=== PATIENT | female | born 1995 | race Caucasian/White ===

== ENCOUNTER 2016-04-17 19:20 | Emergency (ER) | payer OTHER ==
--- NOTE | ~2016-04-17 | CT4 ---
[facility] A Service of [facility] RADIOLOGY TEXT RESULTS PATIENT: SATURNINO ARIAS LOCATION: SED : [birth year] UNIT #: [id number] AGE: [address]: Rey Temple MD SEX: F ORDER DR: [id number] [address] [address] [id number] E MR#: [id number] Acc #: [id number] NAME: SATURNINO ARIAS : 1995 SEX: F STUDY DATE/TIME: 04/17/2016 20:22 UNIT: SED ROOM: STUDY DESCRIPTION: CT Abd and Pelv Wo Cont Attending Physician: Rey Temple M.D. Ordering Physician: Rey Temple M.D. MEDICAL IMAGING REPORT This report is preliminary unless electronic signature is present. EXAM Noncontrast CT abdomen and pelvis. DATE OF EXAM 04/17/2016 HISTORY 21-year-old female hematuria, urinary frequency and low back pain. Constipation for 4 days. Pain with urination. COMPARISON None. PROCEDURE 3 mm noncontrast axial images through the abdomen and pelvis. Enteric contrast was not administered. TECHNIQUE NOTE: This CT exam was performed with one or more of the following radiation dose reduction techniques: automatic exposure control, adjustment of mA and/or kV according to patient size, and iterative reconstruction. FINDINGS ABDOMEN: Increased density in the bilateral renal medullary pyramid suggesting features of medullary nephrocalcinosis. Tiny nonobstructing stone in the left lower renal pole measures about 2 mm. 2 nonspecific low-density lesions left kidney, one in the upper pole measuring 1.3 cm, another in the lateral mid kidney measuring 1.4 cm thought to represent cysts. 2 probable cysts in the posterior right mid kidney measuring 9 and 10 mm respectively. Lung bases are free of consolidation. Noncontrast appearance of the [facility] A Service [facility] RADIOLOGY TEXT RESULTS PATIENT: SATURNINO ARIAS LOCATION: SED : 94 UNIT #: [id number] AGE: [address]: Rey Temple MD SEX: F ORDER DR: liver, gallbladder, spleen, pancreas and adrenal glands within normal limits. Limited evaluation of bowel due to lack of enteric contrast but no focal bowel inflammation. Appendix is normal. No free air, free fluid or adenopathy. PELVIS: There is abnormal perivesical inflammatory type stranding suggesting changes of cystitis. Urinary bladder is not appreciably distended. Uterus and rectum are normal. IMPRESSION 1. Extensive inflammatory type stranding surrounding a nondistended urinary bladder. Correlate clinically for cystitis symptoms. 2. Features of medullary nephrocalcinosis with small bilateral renal cyst and tiny nonobstructing left renal calculus. No ureteral calculus or hydronephrosis. 3. Normal appendix. Dictated by... Jenni Andre M.D. THIS IS AN ELECTRONICALLY VERIFIED REPORT Jenni Andre M.D. at 04/18/2016 9:14 AM GIBSON/pete TD: 04/18/2016 00:20 JOB #: [id number] MEDICAL IMAGING REPORT
[2016-04-17 18:36] LABS: URINE SOURCE CLEAN CATCH
[2016-04-17 18:39] LABS: URINE APPEARANCE HAZY; URINE BILIRUBIN POS (NEG); URINE BLOOD 3+ (NEG); URINE COLOR YELLOW; URINE GLUCOSE NEG (NORM); URINE KETONE NEG (NEG); URINE LEUKOCYTE ESTERASE 1+ (NEG); URINE NITRATE POS (NEG); URINE PROTEIN 3+ (NEG); URINE SPECIFIC GRAVITY 1.025 (1.003-1.035); URINE UROBILINOGEN 0.2 MG/DL (NORM)
[2016-04-17 18:41] LABS: MICRO INDICATED? YES
[2016-04-17 18:42] LABS: CULTURE INDICATED? YES; URINE BACTERIA 1+ (NEG); URINE RBC 100-200 /[HPF] (0-2); URINE SQUAMOUS EPITHELIAL CELL FEW /[HPF]
[2016-04-17 20:00] LABS: BASOPHIL# 0.1 X10e3 (0-0.3); BASOPHIL% 0.5 % (0-2.5); EOSINOPHIL# 0.2 X10e3 (0-0.7); EOSINOPHIL% 1.1 % (0.0-7.0); HEMATOCRIT 46.8 % (35.0-45.0); HEMOGLOBIN 15.4 gm/dL (12.0-16.0); LYMPHOCYTE# 2.3 X10e3 (1.0-3.5); LYMPHOCYTE% 13.5 % (17.0-45.0); MEAN PLATELET VOLUME 8.1 FL (6.5-11.5); MONOCYTE# 1.1 X10e3 (0-1.0); MONOCYTE% 6.1 % (3.0-12.0); NEUTROPHIL# 13.7 X10e3 (1.5-7.1); NEUTROPHIL% 78.8 % (40-75); PLATELET COUNT 356 X10e3 (140-420); RED CELL DISTRIBUTION WIDTH 13.5 % (11.0-15.5); WHITE BLOOD COUNT 17.4 X10e3 (4.0-10.5)
[2016-04-17 20:03] LABS: DIFF IND NO
[2016-04-17 20:15] LABS: BLOOD UREA NITROGEN 10 mg/dL (9-23); BUN/CREATININE RATIO 14.28; CALCIUM SERUM 9.4 mg/dL (8.4-10.2); CARBON DIOXIDE 27 mmol/L (22-31); CHLORIDE 103 mmol/L (100-111); CREATININE SERUM 0.7 mg/dL (0.6-1.4); GLOM FILT RATE Estimated ABOVE60 mL/min (>60); GLUCOSE FASTING 88 mg/dL (70-110); POTASSIUM 3.5 mmol/L (3.5-5.1); SODIUM 139 mmol/L (135-145)
== END 2016-04-17 21:19 | disposition home or self-care (01) ==
LOC: SED 19:20
PROVIDERS: Emergency Medicine
DX: N10 Acute pyelonephritis (principal); F17.210 Nicotine dependence, cigarettes, uncomplicated
CPT/HCPCS: 36415; 74176; 80048; 81003; 84703; 85025; 87086; 87088; 96365; 96375; 99284; J0696; J1885